=== PATIENT | female | born 1975 | race Caucasian/White ===

== ENCOUNTER 2017-12-11 18:46 | Emergency (ER) | payer BC, OTHER ==
[2017-12-11] MEDS ORDERED: KETOROLAC 30 MG/ML VIAL IVP ONE (19:05)
--- NOTE | 2017-12-11 19:10 | Emergency Department Record ---
History of Present Illness - General Chief complaint: Female Urogenital Problem Stated complaint: LOWER BACK PAIN,BURNING WHILE URINATING Time Seen by Provider: 12/11/17 19:04 Source: Patient Mode of Arrival: Ambulatory Limitations: No limitations - History of Present Illness Initial comments: 42 yo female presents to ED for evaluation of bilateral low back pain symptoms that began 2.5 days ago. Patient reports urinary frequency symptoms, denies history of kidney stones but does report previous UTIs. Patient denies fevers, chills, nausea, or vomiting symptoms. Patient denies trauma or injury, reports taking a dose of her SO's Tramadol that did not improve her symptoms. Patient denies health problems at her baseline. MD Complaint: Dysuria, Other Onset/Timin -: Days(s) Radiation: L flank, R flank Severity: Moderate Quality: Aching Consistency: Constant Improves with: None Worsens with: None Associated Symptoms: Denies other symptoms - Related Data Home Medications Medication Instructions Recorded Confirmed Last Taken Losartan Potassium 100 mg PO DAILY 12/11/17 12/11/17 Unknown Temazepam 15 mg PO DAILY 12/11/17 12/11/17 Unknown Topiramate 25Mg Tablet [Topiramate] 25 mg PO DAILY 12/11/17 12/11/17 Unknown Previous Rx's Medication Instructions Recorded Atorvastatin Calcium [Lipitor] 40 mg PO QHS #30 tablet 01/07/15 Ergocalciferol (Vitamin D2) 50,000 unit PO WEEKLY #13 capsule 01/07/15 [Vitamin D2] Sumatriptan Succinate [Imitrex] 100 mg PO ASDIR PRN #14 tablet 01/07/15 Ibuprofen [Motrin] 800 mg PO Q6H PRN #30 tab 12/11/17 Allergies Allergy/AdvReac Type Severity Reaction Status Date / Time No Known Drug Allergies Allergy Unverified 03/25/15 20:02 Review of Systems Constitutional: Denies: Chills, Fever, Malaise, Night sweats Eyes: Denies: Eye discharge, Eye pain ENT: Denies: Congestion, Ear pain, Epistaxis Respiratory: Denies: Cough, Dyspnea Cardiovascular: Denies: Chest pain, Dyspnea on exertion Endocrine: Denies: Fatigue, Heat or cold intolerance Gastrointestinal: Denies: Abdominal pain, Nausea, Vomiting Genitourinary: Reports: Dysuria, Frequency Musculoskeletal: Reports: Back pain. Denies: Arthralgia, Gout, Joint swelling Skin: Denies: Bruising, Change in color Neurological: Denies: Abnormal gait, Confusion, Headache Psychiatric: Denies: Anxiety Hematological/Lymphatic: Denies: Anemia, Blood Clots Past Medical History - SOCIAL HISTORY Smoking Status: Former smoker - RESPIRATORY Hx Respiratory Disorders: No - CARDIOVASCULAR Hx Cardio Disorders: No - NEURO Hx Neuro Disorders: Yes Hx of Migraines: Yes (seasonal a few per year) - GI Hx GI Disorders: Yes Hx Wt Loss/Wt Gain: Yes (adapex down 28# stopped 09/04) - Hx Genitourinary Disorders: Yes - ENDOCRINE Hx Endocrine Disorders: No - MUSCULOSKELETAL Hx Musculoskeletal Disorders: Yes - PSYCH Hx Psych Problems: Yes Hx Depression: Yes (controlled with meds) - HEMATOLOGY/ONCOLOGY Hx Hematology/Oncology Disorders: No Physical Exam - General General Appearance: Alert, Oriented x3, Cooperative, Moderate distress (due to her pain symptoms) Limitations: No limitations - Head Head exam: Atraumatic, Normocephalic, Normal inspection Head exam detail: negative: Abrasion, Contusion, Gold's sign, General tenderness, Hematoma, Laceration - Eye Eye exam: Normal appearance. negative: Conjunctival injection, Periorbital swelling, Periorbital tenderness, Scleral icterus - ENT Ear exam: negative: Auricular hematoma, Auricular trauma Nasal Exam: negative: Active bleeding, Discharge, Dried blood Mouth exam: negative: Drooling, Laceration, Muffled voice, Tongue elevation - Neck Neck exam: Normal inspection. negative: Meningismus, Tenderness - Respiratory Respiratory exam: Normal lung sounds bilaterally. negative: Respiratory distress, Rhonchi, Stridor, Wheezes - Cardiovascular Cardiovascular Exam: Regular rate, Normal rhythm, Normal heart sounds - GI/Abdominal GI/Abdominal exam: Soft. negative: Rebound, Rigid, Tenderness - Rectal Rectal exam: Deferred - exam: Deferred - Extremities Extremities exam: Normal inspection. negative: Calf tenderness, Pedal edema, Tenderness - Back Back exam: Denies: CVA tenderness (R), CVA tenderness (L) - Neurological Neurological exam: Alert, Normal gait, Oriented X3 - Psychiatric Psychiatric exam: Normal affect, Normal mood - Skin Skin exam: Normal color. negative: Abrasion Type of lesion: negative: abrasion Course - Reevaluation(s) Reevaluation #1: 12/11/17 19:35 UA reviewed: RBC: 16-25 WBC 0-2 Epi 3-6 Bact: None CT imaging ordered to exclude ureteral stone. Labs reviewed and are grossly unremarkable for an acute process. Reevaluation #2: 12/11/17 20:11 CT Abdomen and Pelvis: Normal appendix No obstructive uropathy No acute process Patient was reassessed, reports that her pain symptoms are significantly improved following Toradol, appears stable for discharge at this time. Medical Decision Making - Lab Data Result diagrams: 12/11/17 19:21 12/11/17 19:21 Disposition Disposition: Discharge Clinical Impression: Flank pain Disposition: Home, Self-Care Condition: (2) Stable Instructions: Flank Pain (ED) Additional Instructions: Return to ED if your symptoms worsen or if you have any concerns. Motrin 800mg as directed. Follow-up with your family doctor in 3-5 days as directed. Prescriptions: Ibuprofen [Motrin] 800 mg PO Q6H PRN #30 tab PRN Reason: Pain - Mild To Moderate (1-7) Forms: Patient Portal Access Time of Disposition: 20:13 Quality - Quality Measures Quality Measures: N/A - Blood Pressure Screening Does Patient Have Any of the Following: No Blood Pressure Classification: Hypertensive Reading Systolic Measurement: 146 Diastolic Measurement: 90 Screening for High Blood Pressure: < First Hypertensive BP, F/U Documented > [ [id number]] First Hypertensive Follow-up Interventions: Referral to alternative/primary care provider.
[2017-12-11] MEDS ORDERED: 0.9 % SODIUM CHLORIDE 1000ML 1,000 ML IV SCH (19:15)
[2017-12-11 19:17] LABS: URINE APPEARANCE CLOUDY; URINE BILIRUBIN NEGATIVE (NEGATIVE); URINE BLOOD LARGE (NEGATIVE); URINE COLOR YELLOW; URINE GLUCOSE (UA) NEGATIVE (NEGATIVE); URINE KETONE NEGATIVE (NEGATIVE); URINE LEUKOCYTE ESTERASE TRACE (NEGATIVE); URINE NITRITE NEGATIVE (NEGATIVE); URINE PROTEIN NEGATIVE (NEGATIVE); URINE UROBILINOGEN 0.2 E.U./dL (0.20 - 1.00)
[2017-12-11 19:20] LABS: HCG,QUALITATIVE URINE NEGATIVE (NEGATIVE)
[2017-12-11 19:23] LABS: BASO % 0.3 % (0-6); EOS % 2.3 % (0-6); HEMOGLOBIN 13.2 gm/dl (11.6-16.0); LYMPH % 37.2 % (16-45); MEAN CELL VOLUME 92.4 fl (81-97); MEAN CORPUSCULAR HEMOGLOBIN 30.5 pg (27-33); MEAN PLATELET VOLUME 10.1 fl (7.4-10.4); MONO % 8.2 % (0-9); PLATELET COUNT 246 K/uL (130-400); RED BLOOD COUNT 4.33 M/uL (3.80-5.40); RED CELL DISTRIBUTION WIDTH 12.2 % (11.5-14.5)
[2017-12-11 19:26] LABS: URINE BACTERIA NONE SEEN; URINE RBC 16 - 25 (NONE SEEN); URINE WBC 0 - 2 (0-2/hpf)
[2017-12-11 19:36] LABS: BLOOD UREA NITROGEN 14 mg/dL (6-20)
[2017-12-11 19:37] LABS: CREATININE 0.8 mg/dL (0.5-0.9); EST GLOMERULAR FILTRATION RATE > 60 mL/min; TOTAL PROTEIN 6.8 g/dL (6.6-8.7)
[2017-12-11 19:39] LABS: GLUCOSE,RANDOM 98 mg/dL (74-109)
[2017-12-11 19:42] LABS: ALB/GLOB RATIO 1.7 (1.1-1.8); ALBUMIN 4.3 g/dL (4.0-5.0); ALKALINE PHOSPHATASE 70 U/L (35-104); ALT/SGPT 30 U/L (<33); AST/SGOT 18 U/L (10.0-35.0)
--- NOTE | 2017-12-12 15:26 | CT SCAN REPORT ---
EXAM: CT OF THE ABDOMEN AND PELVIS WITHOUT CONTRAST HISTORY: LOW BACK PAIN. TECHNIQUE: Sequential axial images were obtained from the diaphragms through the ischiorectal fossa without intravenous or oral contrast administration. FINDINGS: The visualized lung bases appear normal. The liver, gallbladder, pancreas and spleen appear normal. The adrenal glands and kidneys appear normal. The small bowel appears normal. The appendix is visualized and appears normal. Incomplete distention of the colon somewhat limits evaluation. The uterus and adnexal structures are normal. The urinary bladder appears normal. The osseous structures are normal. IMPRESSION: 1. NO CT FINDINGS SUGGESTIVE OF OBSTRUCTIVE UROPATHY. 2. THE APPENDIX IS VISUALIZED AND APPEARS NORMAL. 3. INCOMPLETE DISTENTION OF THE COLON SOMEWHAT LIMITS EVALUATION. JOB NUMBER: [id number] MTDD
== END 2017-12-11 20:34 | disposition home or self-care (01) ==
LOC: ER 18:46
DX: M54.5 Low back pain (principal); R30.0 Dysuria; Z87.891 Personal history of nicotine dependence
CPT/HCPCS: 99284 ×2; 96374; 85025; 80053; 81001; 81025; 74176; J1885; J7030